=== PATIENT | female | born 1965 | race Caucasian/White ===

== ENCOUNTER 2018-04-02 17:06 | Emergency (ER) | payer SELFPAY ==
[~2018-04-02] VITALS: Ht 156.2 cm; Wt 45.9 kg
[2018-04-02 17:33] VITALS: Ht 156.2 cm; Wt 45.9 kg
[2018-04-02] MEDS ORDERED: VIBRAMYCIN 100100 MG PO (18:19)
[2018-04-02] MEDS ORDERED: VOLTAREN75 MG PO (18:19)
[2018-04-02 19:54] VITALS: BP 121/80
== END 2018-04-02 19:54 | disposition home or self-care (01) ==
LOC: D.ER 17:06
DX: H05.011 Cellulitis of right orbit (principal); F17.200 Nicotine dependence, unspecified, uncomplicated

== ENCOUNTER 2019-01-21 09:42 | Emergency (ER) | payer SELFPAY ==
[~2019-01-21] VITALS: Ht 156.2 cm; Wt 50.0 kg
[~2019-01-21 09:42] MED LIST: VIBRAMYCIN 100100 MG PO; VOLTAREN75 MG PO
[2019-01-21 09:56] VITALS: Ht 156.2 cm; Wt 50.0 kg
[2019-01-21 10:31] LABS: BASOPHILS 0.2 % (0-2); EOSINOPHILS 0.2 % (0-7); HEMATOCRIT 40.9 % (36.0-48.0); HEMOGLOBIN 14.7 g/dL (12-16); IMMATURE GRANULOCYTES 0.3 % (0-5); LYMPHOCYTES 9.2 % (15-50); MCH 30.4 pg (26.0-34.0); MCHC 35.9 g/dL (31.0-37.0); MCV 84.5 fL (80.0-100.0); MEAN PLATELET VOLUME 10.3 fL (7.4-10.4); MONOCYTES 9.6 % (2-11); NEUTROPHILS 80.5 % (40-80); PLATELET COUNT 168 10x3/uL (130-400); RBC 4.84 10x6/uL (4.00-5.40); RDW 12.7 % (11.5-14.5); WBC 12.6 10x3/uL (4.8-10.8)
[2019-01-21 10:59] LABS: ALBUMIN 3.3 g/dL (3.4-5.0); ANION GAP 15.2 mmol/L (8-16); BILIRUBIN - TOTAL 0.75 mg/dL (0.2-1.3); CALCIUM 8.5 mg/dL (8.5-10.1); CARBON DIOXIDE 27.6 mmol/L (21.0-32.0); CREATININE - SERUM 1.1 mg/dL (0.6-1.3); POTASSIUM - SERUM 3.8 mmol/L (3.5-5.1); PROTEIN - SERUM 7.3 g/dL (6.4-8.2)
[2019-01-21 11:50] LABS: APPEARANCE CLOUDY (CLEAR); BILIRUBIN NEGATIVE (NEGATIVE); COLOR YELLOW (YELLOW); GLUCOSE NEGATIVE (NEGATIVE); KETONE NEGATIVE (NEGATIVE); NITRITE NEGATIVE (NEGATIVE); PROTEIN 2+ mg/dL (NEGATIVE); UROBILINOGEN NORMAL (NORMAL)
[2019-01-21 11:55] LABS: BACTERIA MANY /hpf (NEGATIVE); EPITHELIAL CELLS 0-5 /hpf (0-5); RED CELLS - URINE 0-5 /hpf (0-5)
[2019-01-21 11:56] LABS: HYALINE CAST 0-5 /lpf (NONE SEEN)
[2019-01-21] MEDS ORDERED: BENTYL 20 MG TA20 MG PO (14:54)
[2019-01-21] MEDS ORDERED: MACROBID100 MG PO (14:54)
[2019-01-21] MEDS ORDERED: ZOFRAN ODT4 MG/UDTAB PO (14:55)
[2019-01-21 15:08] LABS: UDS - AMPHET NEGATIVE QUAL (NEGATIVE); UDS - BARB NEGATIVE QUAL (NEGATIVE); UDS - BENZO NEGATIVE QUAL (NEGATIVE); UDS - COCAINE POSITIVE QUAL (NEGATIVE); UDS - OPIATE NEGATIVE QUAL (NEGATIVE); UDS - PCP NEGATIVE QUAL (NEGATIVE); UDS - THC NEGATIVE QUAL (NEGATIVE)
[2019-01-21 15:15] VITALS: BP 125/74
== END 2019-01-21 15:16 | disposition home or self-care (01) ==
LOC: D.ER 09:42
PROVIDERS: Family Medicine
DX: N39.0 Urinary tract infection, site not specified (principal); K92.2 Gastrointestinal hemorrhage, unspecified; F17.210 Nicotine dependence, cigarettes, uncomplicated